=== PATIENT | female | born 1995 | race Caucasian/White ===

== ENCOUNTER 2018-11-25 12:03 | Emergency (ER) | payer BC, MEDICAID ==
[2018-11-25] MEDS ORDERED: SILVER SULFADIAZINE 25 GM CREAM TOP ONE (12:25)
--- NOTE | 2018-11-25 12:25 | Emergency Department Record ---
History of Present Illness - General Chief complaint: Sunburn Stated complaint: SUN BURN/BLISTERS ON SHOULDERS Time Seen by Provider: 11/25/18 12:13 Source: Patient, RN notes reviewed Mode of Arrival: Ambulatory - History of Present Illness Initial comments: blisters on the right shoulder and she was having a hard time taking the bandage off and she is 33 weeks and this burn started 3 days ago. Onset/Timin -: Days(s) Smoke Inhalation: None Location: Other Severity: Moderate Severity scale (1-10): 2 Associated Symptoms: Denies other symptoms - Related Data Home Medications Medication Instructions Recorded Confirmed Last Taken Ondansetron HCl [Zofran] 4 mg PO DAILY 11/25/18 11/25/18 Unknown Allergies Allergy/AdvReac Type Severity Reaction Status Date / Time No Known Drug Allergies Allergy Verified 04/04/15 00:02 Travel Screening - Travel/Exposure Within Last 30 Days Have you traveled within the last 30 days?: No Review of Systems Reviewed: No additional complaints except as noted below Constitutional: Reports: As per HPI. Denies: Chills, Fever, Malaise, Night sweats, Weakness, Weight change Eyes: Reports: As per HPI. Denies: Eye discharge, Eye pain, Photophobia, Vision change ENT: Reports: As per HPI. Denies: Congestion, Dental pain, Ear pain, Epistaxis , Hearing loss, Throat pain Respiratory: Reports: As per HPI. Denies: Cough, Dyspnea, Hemoptysis, Stridor, Wheezes Cardiovascular: Reports: As per HPI. Denies: Arrhythmia, Chest pain, Dyspnea on exertion, Edema, Murmurs, Orthopnea, Palpitations, Paroxysmal nocturnal dyspnea, Rheumatic Fever, Syncope Endocrine: Reports: As per HPI. Denies: Fatigue, Heat or cold intolerance, Polydipsia, Polyuria Gastrointestinal: Reports: As per HPI. Denies: Abdominal pain, Constipation, Diarrhea, Hematemesis, Hematochezia, Melena, Nausea, Vomiting Genitourinary: Reports: As per HPI. Denies: Abnormal menses, Discharge, Dyspareunia, Dysuria, Frequency, Hematuria, Incontinence, Retention, Urgency Musculoskeletal: Reports: As per HPI. Denies: Arthralgia, Back pain, Gout, Joint swelling, Myalgia, Neck pain Skin: Reports: As per HPI, Other (partial thickness burn on the right shoulder) . Denies: Bruising, Change in color, Change in hair/nails, Lesions, Pruritus, Rash Neurological: Reports: As per HPI. Denies: Abnormal gait, Confusion, Headache, Numbness, Paresthesias, Seizure, Tingling, Tremors, Vertigo, Weakness Psychiatric: Reports: As per HPI. Denies: Anxiety, Auditory hallucinations, Depression, Homicidal thoughts, Suicidal thoughts, Visual hallucinations Hematological/Lymphatic: Reports: As per HPI. Denies: Anemia, Blood Clots, Easy bleeding, Easy bruising, Swollen glands Past Medical History - SOCIAL HISTORY Smoking Status: Former smoker - RESPIRATORY Hx Respiratory Disorders: No - CARDIOVASCULAR Hx Cardio Disorders: No - NEURO Hx Neuro Disorders: Yes Hx Headaches: Yes - GI Hx GI Disorders: No - Hx Genitourinary Disorders: No - ENDOCRINE Hx Endocrine Disorders: No - MUSCULOSKELETAL Hx Musculoskeletal Disorders: No - PSYCH Hx Psych Problems: No - HEMATOLOGY/ONCOLOGY Hx Hematology/Oncology Disorders: Yes Hx Anemia: Yes Family Medical History Any Significant Family History?: No Physical Exam - General General Appearance: Alert, Oriented x3, Cooperative, Mild distress - Head Head exam: Normal inspection - Eye Eye exam: Normal appearance, PERRL Pupils: Normal accommodation - ENT ENT exam: Normal exam, Mucous membranes moist, Normal external ear exam, Normal orophraynx, TM's normal bilaterally Ear exam: Normal external inspection. negative: External canal tenderness Nasal Exam: Normal inspection. negative: Discharge, Sinus tenderness Mouth exam: Normal external inspection, Tongue normal Teeth exam: Normal inspection. negative: Dental caries Throat exam: Normal inspection. negative: Tonsillar erythema, Tonsillar exudate - Neck Neck exam: Normal inspection, Full ROM. negative: Tenderness - Respiratory Respiratory exam: Normal lung sounds bilaterally. negative: Respiratory distress - Cardiovascular Cardiovascular Exam: Regular rate, Normal rhythm, Normal heart sounds - GI/Abdominal GI/Abdominal exam: Soft, Normal bowel sounds. negative: Tenderness - Rectal Rectal exam: Deferred - exam: Deferred - Extremities Extremities exam: Normal inspection, Full ROM, Normal capillary refill. negative: Tenderness - Back Back exam: Reports: Normal inspection, Full ROM. Denies: Muscle spasm, Rash noted, Tenderness - Neurological Neurological exam: Alert, Normal gait, Oriented X3, Reflexes normal - Psychiatric Psychiatric exam: Normal affect, Normal mood - Skin Skin exam: Other (1%TBA partial thickness burn on the right shoulder and the rest of shoulder erythema only with superficial mora) Course Vital Signs 11/25/18 12:09 Temperature 98.2 F Pulse Rate 106 H Respiratory 18 Rate Blood Pressure 114/80 Pulse Ox 100 - Reevaluation(s) Reevaluation #1: lightly washed with shurclens and apply silvadene just to the blistered area and use moisturizing cream for the rest of the area 11/25/18 12:24 Disposition Clinical Impression: Sunburn, Partial thickness burn Disposition: Home, Self-Care Condition: (1) Good Instructions: Sunburn (ED) Additional Instructions: tylenol for pain jonny or eucrin cream PRN. Time of Disposition: 12:26 Quality - Quality Measures Quality Measures: N/A - Blood Pressure Screening Does Patient Have Any of the Following: No Blood Pressure Classification: Pre-Hypertensive BP Reading Systolic Measurement: 114 Diastolic Measurement: 80 Screening for High Blood Pressure: < Pre-Hypertensive BP, F/U Documented > [ G8950] Pre-Hypertensive Follow-up Interventions: Referral to alternative/primary care provider.
== END 2018-11-25 12:55 | disposition home or self-care (01) ==
LOC: ER 12:03
DX: L55.1 Sunburn of second degree (principal); Z33.1 Pregnant state, incidental
CPT/HCPCS: 99282

== ENCOUNTER 2019-07-28 17:56 | Emergency (ER) | payer MEDICAID ==
--- NOTE | 2019-07-28 18:21 | Emergency Department Record ---
History of Present Illness - General Chief Complaint: Back Pain/Injury Stated Complaint: VOMITTING,BODY ACHES CHILLS Time Seen by Provider: 07/28/19 18:19 Source: Patient Mode of Arrival: Ambulatory Limitations: No limitations - History of Present Illness Initial Comments: 24 yo female presents not feeling well since this morning. She has cough, congestion, nausea and vomiting, runny nose and body aches. She reports the vomiting has been ongoing all day. No diarrhea. No rash. No blood in the vomit. Multiple sick contacts at home with upper respiratory symptoms. She is the only one with vomiting. MD Complaint: Cough, Fever, Nasal congestion, Other (body aches) -: Awoke with symptoms Severity: Moderate Quality: Aching Consistency: Constant Improves With: Nothing Worsens With: Other (eatinig) Context: Sick contacts Associated Symptoms: Chills, Cough, Nasal congestion, Nausea, Vomiting Treatments Prior to Arrival: None - Related Data Previous Rx's Medication Instructions Recorded Cephalexin [Keflex] 500 mg PO QID #28 cap 07/28/19 Ondansetron [Zofran Odt] 4 mg PO Q8H #15 tab.rapdis 07/28/19 Allergies Allergy/AdvReac Type Severity Reaction Status Date / Time No Known Drug Allergies Allergy Verified 07/28/19 18:19 Travel Screening - Travel/Exposure Within Last 30 Days Have you traveled within the last 30 days?: No Review of Systems Constitutional: Reports: Chills, Fever, Weakness Eyes: Denies: Eye discharge ENT: Reports: Congestion. Denies: Ear pain, Epistaxis Respiratory: Reports: Cough, Dyspnea. Denies: Stridor, Wheezes Cardiovascular: Denies: Chest pain, Palpitations, Syncope Endocrine: Reports: Fatigue Gastrointestinal: Reports: Nausea, Vomiting. Denies: Abdominal pain, Constipation, Diarrhea, Hematemesis, Hematochezia, Melena Genitourinary: Denies: Dysuria, Frequency Musculoskeletal: Reports: Back pain, Myalgia. Denies: Arthralgia Skin: Denies: Pruritus, Rash Neurological: Reports: Paresthesias, Tingling (hands and feet tingling) Psychiatric: Reports: Anxiety Hematological/Lymphatic: Denies: Easy bleeding, Easy bruising Past Medical History - SOCIAL HISTORY Smoking Status: Former smoker Alcohol Use: None Drug Use: None - RESPIRATORY Hx Respiratory Disorders: No - CARDIOVASCULAR Hx Cardio Disorders: No - NEURO Hx Neuro Disorders: Yes Hx Headaches: Yes - GI Hx GI Disorders: No - Hx Genitourinary Disorders: No - ENDOCRINE Hx Endocrine Disorders: No - MUSCULOSKELETAL Hx Musculoskeletal Disorders: No - PSYCH Hx Psych Problems: No - HEMATOLOGY/ONCOLOGY Hx Hematology/Oncology Disorders: Yes Hx Anemia: Yes Family Medical History Any Significant Family History?: No Physical Exam - General General Appearance: Alert, Oriented x3, Cooperative, No acute distress Limitations: No limitations - Head Head exam: Atraumatic, Normal inspection - Eye Eye exam: Normal appearance, PERRL. negative: Conjunctival injection, Scleral icterus - ENT ENT exam: Normal exam Ear exam: Normal external inspection Nasal Exam: Normal inspection Mouth exam: Normal external inspection Teeth exam: Normal inspection Throat exam: Normal inspection. negative: Tonsillar erythema, Tonsillomegaly, Tonsillar exudate - Neck Neck exam: Normal inspection. negative: Lymphadenopathy - Respiratory Respiratory exam: Normal lung sounds bilaterally. negative: Rhonchi, Stridor, Wheezes - Cardiovascular Cardiovascular Exam: Normal rhythm, Normal heart sounds, Tachycardia - GI/Abdominal GI/Abdominal exam: negative: Guarding, Tenderness - Rectal Rectal exam: Deferred - exam: Deferred - Extremities Extremities exam: Normal inspection - Back Back exam: Denies: CVA tenderness (R), CVA tenderness (L) - Neurological Neurological exam: Alert - Psychiatric Psychiatric exam: Anxious (vomiting) - Skin Skin exam: Dry, Intact, Normal color, Warm Course Vital Signs 07/28/19 18:15 Temperature 98.2 F Pulse Rate 129 H Respiratory 24 Rate Blood Pressure 122/56 Pulse Ox 100 - Reevaluation(s) Reevaluation #1: 07/28/19 18:58 The influenza are negative 07/28/19 19:14 The CBC was reviewed WBC is 16. 07/28/19 20:05 The CMP was reviewed Indications of dehydration noted and 2nd liter ordered Nausea is greatly improved 07/28/19 21:39 The patient is still doing very well. The plan is re reassess after the third liter. She is now able to provide a UA. 07/28/19 22:08 The UA was reviewed Spec [place] 1.025, Ketones present, N negative, LE positive, 6-10 WBCs, and 3-6 RBC, Bacteria present with some epithelial cells. I explained the UA. I recommend treatment at least until culture returns She is feeling greatly improved and request DC She has held down fluids She will be sent with Zofran and instructions for return 07/28/19 22:11 07/28/19 22:12 Medical Decision Making - Lab Data Result diagrams: 07/28/19 18:50 07/28/19 18:50 Disposition Disposition: Discharge Clinical Impression: Nausea and vomiting, Dehydration, Viral syndrome Disposition: Home, Self-Care Condition: (1) Good Instructions: Urinary Tract Infection in Women (ED), Acute Nausea and Vomiting (ED), Viral Syndrome (ED) Additional Instructions: Review this ER visit and the tests performed with your family doctor Call your doctor for the next available follow up appointment You have a urine culture that will be reported in 2-3 days Return to the ER for a recheck immediately if worse, any new concerns or questions Take the prescriptions provided as directed Prescriptions: Cephalexin [Keflex] 500 mg PO QID #28 cap Ondansetron [Zofran Odt] 4 mg PO Q8H #15 tab.rapdis Forms: Patient Portal Access Time of Disposition: 22:18 Quality - Quality Measures Quality Measures: N/A - Blood Pressure Screening Does Patient Have Any of the Following: No Blood Pressure Classification: Pre-Hypertensive BP Reading Systolic Measurement: 122 Diastolic Measurement: 56 Screening for High Blood Pressure: < Pre-Hypertensive BP, F/U Documented > [G8950] Pre-Hypertensive Follow-up Interventions: Referral to alternative/primary care provider.
[2019-07-28] MEDS ORDERED: PROMETHAZINE HCL 25 MG/ML VIAL IVP ONE (18:32)
[2019-07-28] MEDS ORDERED: 0.9 % SODIUM CHLORIDE 1,000 ML BAG IV ONE ×2 (18:32→20:05)
[2019-07-28] MEDS ORDERED: DIPHENHYDRAMINE HCL 50 MG/ML VIAL IVP ONE (18:32)
[2019-07-28 18:43] LABS: INFLUENZA A NEGATIVE (NEGATIVE); INFLUENZA B NEGATIVE (NEGATIVE)
[2019-07-28 18:57] LABS: ABSOLUTE NEUTROPHIL COUNT 15.07; HEMATOCRIT 39.8 % (35.0-47.0); HEMOGLOBIN 12.6 gm/dl (11.6-16.0); MEAN CELL VOLUME 101.8 fl (81-97); MEAN CORPUSCULAR HEMOGLOBIN 32.2 pg (27-33); MEAN CORPUSCULAR HGB CONC 31.7 g/dl (32-36); MEAN PLATELET VOLUME 8.8 fl (7.4-10.4); PLATELET COUNT 654 K/uL (130-400); RED BLOOD COUNT 3.91 M/uL (3.80-5.40); RED CELL DISTRIBUTION WIDTH 12.7 % (11.5-14.5); WHITE BLOOD COUNT W/O DIFF 16.4 K/uL (4.2-12.2)
[2019-07-28 19:10] LABS: BLOOD UREA NITROGEN 21 mg/dL (6-20); CREATININE 0.6 mg/dL (0.5-0.9); EST GLOMERULAR FILTRATION RATE > 60 mL/min
[2019-07-28 19:11] LABS: LIPASE 68 U/L (13-60); TOTAL PROTEIN 7.9 g/dL (6.6-8.7)
[2019-07-28 19:13] LABS: GLUCOSE,RANDOM 112 mg/dL (74-109)
[2019-07-28 19:16] LABS: ALB/GLOB RATIO 1.5 (1.1-1.8); ALBUMIN 4.8 g/dL (4.0-5.0); ALKALINE PHOSPHATASE 60 U/L (35-104); ALT/SGPT 15 U/L (<33); AST/SGOT 17 U/L (10.0-35.0)
[2019-07-28] MEDS ORDERED: ACETAMINOPHEN 500 MG TABLET PO ONE (19:28)
[2019-07-28] MEDS ORDERED: ONDANSETRON HCL IV 4 MG/2 ML VIAL IVP ONE (20:53)
[2019-07-28] MEDS ORDERED: 0.9 % SODIUM CHLORIDE 1000ML 1,000 ML IV ONE (21:21)
[2019-07-28 21:50] LABS: URINE BILIRUBIN NEGATIVE (NEGATIVE); URINE BLOOD NEGATIVE (NEGATIVE); URINE COLOR YELLOW; URINE GLUCOSE (UA) NEGATIVE (NEGATIVE); URINE KETONE 40 mg/dL (NEGATIVE); URINE LEUKOCYTE ESTERASE MODERATE (NEGATIVE); URINE NITRITE NEGATIVE (NEGATIVE); URINE PROTEIN NEGATIVE (NEGATIVE); URINE UROBILINOGEN 0.2 E.U./dL (0.20 - 1.00)
[2019-07-28 21:52] LABS: URINE APPEARANCE CLOUDY
[2019-07-28 22:06] LABS: URINE BACTERIA 2+; URINE MUCUS MODERATE; URINE YEAST MODERATE
[2019-07-28] MEDS ORDERED: ONDANSETRON 4 MG ODT TABLET SL ONE (22:10)
[2019-07-28] MEDS ORDERED: CEPHALEXIN 500 MG CAPSULE PO STA ×2 (22:13)
== END 2019-07-28 22:44 | disposition home or self-care (01) ==
LOC: ER 17:56
DX: E86.0 Dehydration (principal); R11.2 Nausea with vomiting, unspecified; B34.9 Viral infection, unspecified; R05 Cough
CPT/HCPCS: 80053; 81001; 83690; 84703; 85027; 87400; 96361; 96374; 96375; 99284; J1200; J2405; J2550; J7030